=== PATIENT | female | born 1985 | race Two or more races ===

== ENCOUNTER 2016-06-03 14:23 | Emergency (ER) | payer OTHER ==
[2016-06-03 14:33] VITALS: BP 145/76; PULSE 54; TEMP 97.7; BMI 36.1
[2016-06-03] MEDS ORDERED: LIDOCAINE 2.5%/PRILOCAINE 2.5% (5 Gram/TUBE) TP ONE (16:28)
--- NOTE | 2016-06-03 16:36 | PDOC ---
[id number] [id number] PAIN Time Seen by Provider: 06/03/16 16:07 History Source: Patient Exam Limitations: No Limitations - History of Present Illness Initial Comments: 06/03/16 17:23 Chief complaint: Hemorrhoidal pain History of present illness: Patient is a 30-year-old female with no significant medical history except for external hemorrhoids after giving December 2015. Patient reports that she has had no difficulty with hemorrhoidal pain until 3 days ago that worsened yesterday when she carried suit[place] and the airport. Patient denies any constipated stool reports having last bowel movement yesterday with minimal rectal bleeding. She reports that she was able to push him right back back in until yesterday. Patient reports that hemorrhoid became much more painful and is currently a 9 out of 10. Patient has tried using witch diana and some other hemorrhoidal cream that she was given back in December 2015. Patient denies any abdominal pain. Denies Any chance of being and just finished her menstrual cycle within the last couple of days. Timing/Duration: getting worse (over 3 days ) Modifying Factors: improves with: other (nothing ) Associated Symptoms: reports: other (bleeding slight with BM yesterday, large tender hemmorhoid external ) Past History - Past Medical History Allergies/Adverse Reactions: Allergies Allergy/AdvReac Type Severity Reaction Status Date / Time No Known Allergies Allergy Verified 06/03/16 14:33 Home Medications: Ambulatory Orders Lidocaine/Prilocaine Cream [Emla] 1 each TP Q8H PRN #1 kit 06/03/16 Oxycodone HCl/Acetaminophen [Percocet 5-325 mg Tablet] 1 tab PO Q6H PRN #8 tablet MDD 4 06/03/16 - Surgical History Abdominal Surgery: Yes (rt FALLOPIAN TUBE REMOVED) - Reproductive History (#): 9 Para: 2 Ectopic : Yes (x2) Therapeutic (s) & number: Yes (X2) Spontaneous : 2 - Immunization History Td Vaccination: Yes Immunization Up to Date: Yes - Psycho/Social/Smoking Cessation Hx Anxiety: No Suicidal Ideation: No Smoking Status: No Smoking History: Never smoked Years of Tobacco Use: 0 Have you smoked in the past 12 months: No Number of Cigarettes Smoked Daily: 0 Cigars Per Day: 0 Information on smoking cessation initiated: No Hx Alcohol Use: No Drug/Substance Use Hx: No Substance Use Type: None Review of Systems - Review of Systems Able to Perform ROS?: Yes Constitutional: No: Symptoms Reported HEENTM: No: Symptoms Reported Respiratory: No: Symptoms reported Cardiac (ROS): No: Symptoms Reported ABD/GI: Yes: Rectal Bleeding (minimal with BM yesterday, external tender enlarge hemorrhoid for 3 days getting worse) : No: Symptoms Reported Musculoskeletal: No: Symptoms Reported Integumentary: No: Symptoms Reported Neurological: No: Symptoms reported *Physical Exam - Vital Signs Last Vital Signs Temp Pulse Resp BP Pulse Ox 97.7 F 54 L 18 145/76 98 06/03/16 14:31 06/03/16 14:31 06/03/16 14:31 06/03/16 14:31 06/03/16 14:31 - Physical Exam General Appearance: Yes: Appropriately Dressed Respiratory/Chest: positive: Lungs Clear, Normal Breath Sounds. negative: Chest Tender, Respiratory Distress Cardiovascular: positive: Regular Rhythm, Regular Rate, S1, S2 Gastrointestinal/Abdominal: positive: Normal Bowel Sounds, Soft. negative: Tender, Organomegaly, Distended, Guarding, Rebound, Tenderness, Hepatomegaly, Spleenomegaly Rectal Exam: positive: normal rectal tone, hemorrhoids (external tender enlarge hemorroid with bluish hue ), other (unable to do internal rectal exam ) Neurologic: positive: Alert, Normal Response, Responsive Procedures - Consent Consent obtained: From Patient - Incision and Drainage I&D Site: Bilateral: Other (external hemorroid with bluish hue ) Betadine cleansed: Yes Anesthesia: 1% Lidocaine Volume(ml): 3 Blade Size: 11 Attempts: 1 (hemostat inserted no clots obtained, minimal bleeding ) Medical Decision Making - Medical Decision Making 06/03/16 17:25 Patient is a 30-year-old female with no significant medical history except for external hemorrhoids after giving December 2015. Patient reports that she has had no difficulty with hemorrhoidal pain until 3 days ago that worsened yesterday when she [place] and the airport. Patient denies any constipated stool reports having last bowel movement yesterday with minimal rectal bleeding. She reports that she was able to push him right back back in until yesterday. Patient reports that hemorrhoid became much more painful and is currently a 9 out of 10. Patient has tried using witch diana and some other hemorrhoidal cream that she was given back in December 2015. Patient denies any abdominal pain. Denies Any chance of being and just finished her menstrual cycle within the last couple of days. external hemorroid extremely tender with bluish hue PLAN: ice to external hemorrhoid alondra to external hemorrhoid every 8 hrs as needed for pain excision of external hemorrhoid lidocaine 1 % 2.5 ml injected into hemorrhoid using a scalpel 11 blade eliptical incision made over area of hemorrhoid with bluish hue hemostat inserted no clots were obtained, minimal bleeding Patient to increase fiber to 30 g daily and to drink at least 64 ounces of water daily Patient may take sitz bath every few hours for comfort Patient advised not to do any lifting Patient to follow up with Dr. Merlos on 06/05/16 percocet 5mg/325 mg po now than every 6 hrs for severe pain # 8 tabs 06/03/16 19:23 *DC/Admit/Observation/Transfer Diagnosis at time of Disposition: External hemorrhoids without complication - Discharge Dispostion Disposition: HOME Condition at time of disposition: Stable - Prescriptions Prescriptions: Lidocaine/Prilocaine Cream [Emla] 1 each TP Q8H PRN #1 kit PRN Reason: Pain Oxycodone HCl/Acetaminophen [Percocet 5-325 mg Tablet] 1 tab PO Q6H PRN #8 tablet MDD 4 PRN Reason: Severe Pain - Referrals Referrals: Lori Medellin [Primary Care Provider] - Vicente Garcia MD [Staff Physician] - - Patient Instructions Additional Instructions: increase fiber intake to 30 g of fiber daily may eat 3 fiber one bar's daily which will equal 30 g of fiber Drink at least 64 ounces of water daily TAke warm baths as tolerated to help relieve pain and swelling Follow up with surgeon on 06/05/2016 Return to emergency room if symptoms worsen or new symptoms develop Avoid any heavy lifting of items Patient voiced understanding of discharge instructions and all questions were answered - Post Discharge Activity Work/School Note: Back to Work
[2016-06-03] MEDS ORDERED: OXYCODONE/APAP 5/325MG COMBO TABLET PO ONE (17:22)
[2016-06-03] MEDS ORDERED: OXYCODONE/APAP 5/325MG COMBO TABLET ONE (17:38)
== END 2016-06-03 17:41 | disposition home or self-care (01) ==
LOC: JERFT 14:23
DX: K64.4 Residual hemorrhoidal skin tags (principal)
CPT/HCPCS: 99281-25

== ENCOUNTER 2016-06-06 14:22 | Emergency (ER) | payer OTHER ==
[2016-06-06 14:27] VITALS: BP 104/55; PULSE 68; TEMP 98.4; BMI 35.9
--- NOTE | 2016-06-06 14:55 | PDOC ---
History of Present Illness - General History Source: Patient, Old Records Exam Limitations: No Limitations - History of Present Illness Initial Comments: 06/06/16 15:48 The patient is a 30 year old female, with a significant past medical history of hemorrhoids, who presents to the emergency department for hemorrhoids pain. The patient was seen in the ED 3 days ago for hemorrhoids and had it incised and drained. The patient is set to see Dr. Vicente Garcia regarding the incision while she is in the ED. The patient denies fever, chills, nausea, vomit, diarrhea and constipation. Denies dysuria, frequency, urgency and hematuria. Allergies: None Past surgical history: Right fallopian tube removal Social history: Occasional alcohol use. No tobacco or drug use reported Surgeon: Dr. Vicente Garcia <Jorge Espinosa - Last Filed: 06/06/16 16:24> <Rosy Muñiz - Last Filed: 06/09/16 09:48> - General Chief Complaint: Hemorrhoids Stated Complaint: SENT BY PCP Time Seen by Provider: 06/06/16 14:41 Past History <Jorge Espinosa - Last Filed: 06/06/16 16:24> - Past Medical History Other medical history: HEMMORHOIDS - Surgical History Abdominal Surgery: Yes (rt FALLOPIAN TUBE REMOVED) - Reproductive History (#): 9 Para: 2 Ectopic : Yes (x2) Therapeutic (s) & number: Yes (X2) Spontaneous : 2 - Immunization History Td Vaccination: Yes Immunization Up to Date: Yes - Psycho/Social/Smoking Cessation Hx Anxiety: No Suicidal Ideation: No Smoking Status: No Smoking History: Never smoked Years of Tobacco Use: 0 Have you smoked in the past 12 months: No Number of Cigarettes Smoked Daily: 0 Cigars Per Day: 0 Hx Alcohol Use: Yes (OCCASIONALLY) Drug/Substance Use Hx: No Substance Use Type: None <Rosy Muñiz - Last Filed: 06/09/16 09:48> - Past Medical History Allergies/Adverse Reactions: Allergies Allergy/AdvReac Type Severity Reaction Status Date / Time No Known Allergies Allergy Verified 06/06/16 14:28 Home Medications: Ambulatory Orders Lidocaine 5% Top. Ointment [Xylocaine 5% Top. Ointment -] 1 applic TP Q4H PRN # 1 tube 06/06/16 Review of Systems - Review of Systems Able to Perform ROS?: Yes Comments:: 06/06/16 15:49 GENERAL/CONSTITUTIONAL: No fever or chills. No weakness. HEAD, EYES, EARS, NOSE AND THROAT: No change in vision. No ear pain or discharge. No sore throat. CARDIOVASCULAR: No chest pain or shortness of breath RESPIRATORY: No cough, wheezing, or hemoptysis. GASTROINTESTINAL: No nausea, vomiting, diarrhea or constipation. GENITOURINARY: No dysuria, frequency, or change in urination. MUSCULOSKELETAL: No joint or muscle swelling or pain. No neck or back pain. SKIN: +External Hemorrhoids. No rash NEUROLOGIC: No headache, vertigo, loss of consciousness, or change in strength/ sensation. ENDOCRINE: No increased thirst. No abnormal weight change HEMATOLOGIC/LYMPHATIC: No anemia, easy bleeding, or history of blood clots. ALLERGIC/IMMUNOLOGIC: No hives or skin allergy. <Jorge Espinosa - Last Filed: 06/06/16 16:24> *Physical Exam - Vital Signs Last Vital Signs Temp Pulse Resp BP Pulse Ox 98.4 F 68 16 104/55 99 06/06/16 14:25 06/06/16 14:25 06/06/16 14:25 06/06/16 14:25 06/06/16 14:25 - Physical Exam Comments: 06/06/16 16:30 GENERAL: Awake, alert, and fully oriented, in no acute distress HEAD: No signs of trauma, normocephalic, atraumatic EYES: PERRLA, EOMI, sclera anicteric, conjunctiva clear ENT: Auricles normal inspection, hearing grossly normal, nares patent, oropharynx clear without exudates. Moist mucosa NECK: Normal ROM, supple, no lymphadenopathy, JVD, or masses LUNGS: No distress, speaks full sentences, clear to auscultation bilaterally HEART: Regular rate and rhythm, normal S1 and S2, no murmurs, rubs or gallops, peripheral pulses normal and equal bilaterally. ABDOMEN: Soft, nontender, normoactive bowel sounds. No guarding, no rebound. No masses EXTREMITIES: Normal inspection, Normal range of motion, no edema. No clubbing or cyanosis. NEUROLOGICAL: Cranial nerves II through XII grossly intact. Normal speech, normal gait, no focal sensorimotor deficits SKIN: Warm, Dry, normal turgor, no rashes or lesions noted. <Jorge Espinosa - Last Filed: 06/06/16 16:24> - Vital Signs Last Vital Signs Temp Pulse Resp BP Pulse Ox 98.4 F 68 16 104/55 99 06/06/16 14:25 06/06/16 14:25 06/06/16 14:25 06/06/16 14:25 06/06/16 14:25 <Rosy Muñiz - Last Filed: 06/09/16 09:48> Medical Decision Making - Medical Decision Making Pt evaluated by Dr. Garcia in ED. No further intervention at this time. Will treat with topical lidocaine ointment. <Rosy Muñiz - Last Filed: 06/09/16 09:48> *DC/Admit/Observation/Transfer - Attestations Scribe Attestion: 06/06/16 15:49 Documentation prepared by Jorge Espinosa, acting as chief medical officer for Rosy Muñiz MD <Jorge Espinosa - Last Filed: 06/06/16 16:24> - Discharge Dispostion Admit: No <Rosy Muñiz - Last Filed: 06/09/16 09:48> Diagnosis at time of Disposition: External hemorrhoids without complication - Discharge Dispostion Disposition: HOME Condition at time of disposition: Stable - Prescriptions Prescriptions: Lidocaine 5% Top. Ointment [Xylocaine 5% Top. Ointment -] 1 applic TP Q4H PRN # 1 tube PRN Reason: Pain - Referrals Referrals: Lori Medellin [Primary Care Provider] - - Patient Instructions Printed Discharge Instructions: DI for Hemorrhoids - Post Discharge Activity Work/School Note: Back to Work
--- NOTE | 2016-06-06 15:04 | CONSULT ---
Consult Consult Specialty:: colorectal surgery Reason for Consultation:: anorectal pain - History of Present Illness Chief Complaint: anorectal pain History of Present Illness: pt s/p drainage thrombosed hemorrhoid 3 days ago in ER. slight improvement in symptoms but still having pain, burning, swelling. had hemorrhoid issues around time of her child in december. denies constipation/straining. + recent travel/flight - History Source History Provided By: Patient Limitations to Obtaining History: No Limitations - Past Medical History ...LMP: 04/02/15 - Alcohol/Substance Use Hx Alcohol Use: Yes (OCCASIONALLY) - Smoking History Smoking history: Never smoked Have you smoked in the past 12 months: No Aproximately how many cigarettes per day: 0 Home Medications - Allergies Allergies/Adverse Reactions: Allergies Allergy/AdvReac Type Severity Reaction Status Date / Time No Known Allergies Allergy Verified 06/06/16 14:28 - Home Medications Home Medications: Ambulatory Orders Lidocaine/Prilocaine Cream [Emla] 1 each TP Q8H PRN #1 kit 06/03/16 Oxycodone HCl/Acetaminophen [Percocet 5-325 mg Tablet] 1 tab PO Q6H PRN #8 tablet MDD 4 06/03/16 Family Disease History - Family Disease History Family History: Denies Review of Systems - Review of Systems Constitutional: denies: Chills, Fever Eyes: denies: Blind Spots, Blurred Vision HENT: denies: Difficult Swallowing, Ear Discharge Neck: denies: Decreased ROM, Lumps Cardiovascular: denies: Chest Pain, Edema Respiratory: denies: Cough, Exercise Intolerance Gastrointestinal: denies: Abdominal Pain, Constipation Genitourinary: denies: Discharge, Dysuria Breasts: denies: Pain, Skin Changes Musculoskeletal: denies: Back Pain, Crepitus Integumentary: denies: Blister, Bruising Neurological: denies: Change in Speech, Confusion Endocrine: denies: Excessive Sweating, Flushing Hematology/Lymphatic: denies: Easily Bruised, Excessive Bleeding Psychiatric: denies: Altered Sleep Pattern, Anxiety Physical Exam Vital Signs: Vital Signs Temperature 98.4 F 06/06/16 14:25 Pulse Rate 68 06/06/16 14:25 Respiratory Rate 16 06/06/16 14:25 Blood Pressure 104/55 06/06/16 14:25 O2 Sat by Pulse Oximetry (%) 99 06/06/16 14:25 Constitutional: Yes: No Distress, Calm Eyes: Yes: Conjunctiva Clear, EOM Intact HENT: Yes: Atraumatic, Normocephalic Neck: Yes: Supple, Trachea Midline Cardiovascular: Yes: Regular Rate and Rhythm Respiratory: Yes: Regular, CTA Bilaterally Gastrointestinal: Yes: Soft. No: Distention, Tenderness ...Rectal Exam: Yes: Other (pt in left lateral decubitus position. +swollen tag in R posterior, incision healed. tender to palpation.) Renal/: No: CVA Tenderness - Left, CVA Tenderness - Right Musculoskeletal: No: Joint Stiffness, Joint Swelling Extremities: No: Calf Tenderness, Erythema Integumentary: No: Erythema, Rash Neurological: Yes: Alert, Oriented Psychiatric: Yes: Alert, Oriented Problem List - Problems (1) External hemorrhoids without complication Assessment/Plan: counseled pt about condition likely from altered bowel habits from travel high fiber diet increase water intake lidocaine 5% ointment q4 hrs prn pain f/u prn Code(s): K64.4 - RESIDUAL HEMORRHOIDAL SKIN TAGS
== END 2016-06-06 16:25 | disposition home or self-care (01) ==
LOC: JER 14:22
DX: K64.4 Residual hemorrhoidal skin tags (principal)
CPT/HCPCS: 99283-25

== ENCOUNTER 2016-09-26 18:06 | Emergency (ER) | payer OTHER ==
[2016-09-26 18:16] VITALS: BMI 35.2
[2016-09-26] MEDS ORDERED: SODIUM CHLORIDE 1,000 ML IV STA (20:28)
[2016-09-26] MEDS ORDERED: ONDANSETRON 4 MG/2 ML VIAL IVPB ONE (20:28)
[2016-09-26] MEDS ORDERED: METOCLOPRAMIDE HCL INJECTION 10 MG/2 ML VIAL IVPB ONE (20:29)
[2016-09-26] MEDS ORDERED: KETOROLAC TROMETHAMINE 30 MG/1 ML VIAL IVPUSH ONE (20:31)
[2016-09-26] MEDS ORDERED: METOCLOPRAMIDE HCL INJECTION 10 MG/2 ML VIAL ONE (20:58)
[2016-09-26] MEDS ORDERED: KETOROLAC TROMETHAMINE 30 MG/1 ML VIAL ONE (20:58)
[2016-09-26] MEDS ORDERED: ONDANSETRON 4 MG/2 ML VIAL ONE (20:59)
[2016-09-26 21:13] LABS: BASOPHIL 0.2 % (0-2.0); EOSINOPHIL 0.2 % (0-4.5); MCH 25.7 pg (25.7-33.7); MCHC 32.9 g/dl (32.0-36.0); MEAN CELL VOLUME 77.9 fl (80-96); MEAN PLT VOLUME 9.1 fl (7.5-11.1); NEUTROPHILS 68.2 % (42.8-82.8); PLATELET COUNT 197 K/MM3 (134-434); WHITE BLOOD COUNT 7.9 K/mm3 (4.0-10.0)
[2016-09-26 21:30] LABS: URINE APPEARANCE CLEAR; URINE BILIRUBIN NEGATIVE (NEGATIVE); URINE BLOOD NEGATIVE (NEGATIVE); URINE COLOR YELLOW; URINE GLUCOSE (UA) NEGATIVE (NEGATIVE); URINE KETONE 1+ (NEGATIVE); URINE LEUK ESTERASE NEGATIVE (NEGATIVE); URINE NITRITE NEGATIVE (NEGATIVE); URINE PROTEIN NEGATIVE (NEGATIVE); URINE UROBILINOGEN NEGATIVE mg/dL (0.2-1.0)
--- NOTE | 2016-09-26 21:36 | PDOC ---
History of Present Illness - General History Source: Patient Exam Limitations: No Limitations - History of Present Illness Initial Comments: 09/26/16 21:46 The patient is a 30 year old female with no significant past medical history who presents to the ED with multiple complaints. She states that her eyes began to get itchy after she rubbed them at work four days ago. The following day she developed a fever of 103 along with worsening, now red, burning, itchy eyes with exudate. She was also experiencing nausea, vomiting, and noting episodes of hematemesis as well. She went to her PMD and was prescribed motrin and antibiotic eye drops. After having fever for the next two nights she returned to her PMD again and was prescribed a Z pack. She states her two daughters are sick at home with viruses. The patient denies any chest pain, SOB, or urinary symptoms. LMP was September 11. Surgeries: 2010 right ectopic , Breast reduction in 2005 PCP: Michael Medellin <Allyssa Wang - Last Filed: 09/26/16 21:52> <Maria T Bartlett - Last Filed: 09/27/16 02:27> - General Chief Complaint: Nausea/Vomiting Stated Complaint: Eye Problem/FEVER Time Seen by Provider: 09/26/16 19:53 Past History <Allyssa Wang - Last Filed: 09/26/16 21:52> - Surgical History Abdominal Surgery: Yes (rt FALLOPIAN TUBE REMOVED) - Reproductive History (#): 9 Para: 2 Ectopic : Yes (x2) Therapeutic (s) & number: Yes (X2) Spontaneous : 2 - Immunization History Td Vaccination: Yes Immunization Up to Date: Yes - Psycho/Social/Smoking Cessation Hx Anxiety: No Suicidal Ideation: No Smoking Status: No Smoking History: Never smoked Years of Tobacco Use: 0 Have you smoked in the past 12 months: No Number of Cigarettes Smoked Daily: 0 Cigars Per Day: 0 Hx Alcohol Use: Yes (OCCASIONALLY) Drug/Substance Use Hx: No Substance Use Type: None <Maria T Bartlett - Last Filed: 09/27/16 02:27> - Past Medical History Allergies/Adverse Reactions: Allergies Allergy/AdvReac Type Severity Reaction Status Date / Time No Known Allergies Allergy Verified 09/26/16 18:14 Home Medications: Ambulatory Orders Lidocaine 5% Top. Ointment [Xylocaine 5% Top. Ointment -] 1 applic TP Q4H PRN # 1 tube 06/06/16 Sulfacetamide Sodium [Bleph-10] 5 ml OP DAILY 09/26/16 Review of Systems - Review of Systems Able to Perform ROS?: Yes Comments:: 09/26/16 21:46 CONSTITUTIONAL: Present: fever, chills Absent: diaphoresis, generalized weakness, malaise, loss of appetite HEENT: Present: eye pain, eye itchiness, eye discharge Absent: rhinorrhea, nasal congestion, throat pain, throat swelling, difficulty swallowing, mouth swelling, ear pain,visual Changes CARDIOVASCULAR: Absent: chest pain, syncope, palpitations, irregular heart rate, lightheadedness , peripheral edema RESPIRATORY: Absent: cough, shortness of breath, dyspnea with exertion, orthopnea, wheezing, stridor, hemoptysis GASTROINTESTINAL: Present: nausea, vomiting, diarrhea Absent: abdominal pain, abdominal distension, constipation, melena, hematochezia GENITOURINARY: Absent: dysuria, frequency, urgency, hesitancy, hematuria, flank pain, genital pain MUSCULOSKELETAL: Absent: myalgia, arthralgia, joint swelling SKIN: Absent: rash, itching, pallor HEMATOLOGIC/IMMUNOLOGIC: Absent: easy bleeding, easy bruising, lymphadenopathy, frequent infections ENDOCRINE: Absent: unexplained weight gain, unexplained weight loss, heat intolerance, cold intolerance NEUROLOGIC: Present: headache Absent: focal weakness or paresthesias, dizziness, unsteady gait, seizure, mental status changes, bladder or bowel incontinence PSYCHIATRIC: Absent: anxiety, depression, suicidal or homicidal ideation, hallucinations. <Allyssa Wang - Last Filed: 09/26/16 21:52> *Physical Exam - Vital Signs Last Vital Signs Temp Pulse Resp BP Pulse Ox 98.8 F 90 18 125/71 98 09/26/16 18:14 09/26/16 18:14 09/26/16 18:14 09/26/16 18:14 09/26/16 18:14 - Physical Exam Comments: 09/26/16 21:50 GENERAL: Well developed, well nourished. Awake and alert. No acute distress. HEENT: Conjunctivitis, tonsillar hypertrophy, exudates in oropharynx. Normocephalic, atraumatic. PERRLA, EOMI. No conjunctival pallor. Sclera are non-icteric. Moist mucous membranes. NECK: Supple. Full ROM. No JVD. Carotid pulses 2+ and symmetric, without bruits. No thyromegaly. No lymphadenopathy. CARDIOVASCULAR: Regular rate and rhythm. No murmurs, rubs, or gallops. Distal pulses are 2+ and symmetric. PULMONARY: No evidence of respiratory distress. Lungs clear to auscultation bilaterally. No wheezing, rales or rhonchi. ABDOMINAL: Soft. Non-tender. Non-distended. No rebound or guarding. No organomegaly. Normoactive bowel sounds. MUSCULOSKELETAL Normal range of motion at all joints. No bony deformities or tenderness. No CVA tenderness. EXTREMITIES: No cyanosis. No clubbing. No edema. No calf tenderness. SKIN: No petichiae. Warm and dry. Normal capillary refill. No rashes. No jaundice. NEUROLOGICAL: Alert, awake, appropriate. Cranial nerves 2-12 intact. No deficits to light touch and temperature in face, upper extremities and lower extremities. No motor deficits in the in face, upper extremities and lower extremities. Normoreflexic in the upper and lower extremities. Normal speech. Toes are down-going bilaterally. Gait is normal without ataxia. PSYCHIATRIC: Cooperative. Good eye contact. Appropriate mood and affect. <Allyssa Wang - Last Filed: 09/26/16 21:52> - Vital Signs Last Vital Signs Temp Pulse Resp BP Pulse Ox 98.8 F 90 18 125/71 98 09/26/16 18:14 09/26/16 18:14 09/26/16 18:14 09/26/16 18:14 09/26/16 18:14 <Maria T Bartlett - Last Filed: 09/27/16 02:27> ED Treatment Course - LABORATORY CBC & Chemistry Diagram: 09/26/16 20:49 09/26/16 20:49 - ADDITIONAL ORDERS Additional order review: Laboratory Results 09/26/16 20:49 Urine Color Yellow Urine Appearance Clear Urine pH 6.0 Urine Protein Negative Urine Glucose (UA) Negative Urine Ketones 1+ H Urine Blood Negative Urine Nitrite Negative Urine Bilirubin Negative Urine Urobilinogen Negative Ur Leukocyte Esterase Negative 09/26/16 20:49 RBC 4.81 MCV 77.9 L MCHC 32.9 RDW 15.0 MPV 9.1 Neutrophils % 68.2 Lymphocytes % 18.2 D Monocytes % 13.2 H D Eosinophils % 0.2 D Basophils % 0.2 - Medications Given in the ED: ED Medications Discontinued Medications Generic Name Dose Route Start Last Admin Trade Name Mariela PRN Reason Stop Dose Admin Diphenhydramine HCl 25 mg 09/26/16 20:30 09/26/16 21:16 Benadryl Injection - IVPUSH 09/26/16 20:31 25 mg ONCE ONE Administration Sodium Chloride 1,000 mls @ 1,000 mls/hr 09/26/16 20:28 09/26/16 21:00 Normal Saline - IV 09/26/16 21:27 1,000 mls/hr ASDIR STA Administration Ketorolac Tromethamine 30 mg 09/26/16 20:31 09/26/16 21:16 Toradol Injection - IVPUSH 09/26/16 20:32 30 mg ONCE ONE Administration Metoclopramide HCl 10 mg 09/26/16 20:29 09/26/16 21:16 Reglan Injection - IVPB 09/26/16 20:30 10 mg ONCE ONE Administration Ondansetron HCl 4 mg 09/26/16 20:28 09/26/16 21:16 Zofran Injection IVPB 09/26/16 20:29 4 mg ONCE ONE Administration <Allyssa Wang - Last Filed: 09/26/16 21:52> - LABORATORY CBC & Chemistry Diagram: 09/26/16 20:49 09/26/16 20:49 - ADDITIONAL ORDERS Additional order review: Laboratory Results 09/26/16 20:49 Urine Color Yellow Urine Appearance Clear Urine pH 6.0 Urine Protein Negative Urine Glucose (UA) Negative Urine Ketones 1+ H Urine Blood Negative Urine Nitrite Negative Urine Bilirubin Negative Urine Urobilinogen Negative Ur Leukocyte Esterase Negative 09/26/16 20:49 RBC 4.81 MCV 77.9 L MCHC 32.9 RDW 15.0 MPV 9.1 Neutrophils % 68.2 Lymphocytes % 18.2 D Monocytes % 13.2 H D Eosinophils % 0.2 D Basophils % 0.2 - Medications Given in the ED: ED Medications Discontinued Medications Generic Name Dose Route Start Last Admin Trade Name Mariela PRN Reason Stop Dose Admin Diphenhydramine HCl 25 mg 09/26/16 20:30 09/26/16 21:16 Benadryl Injection - IVPUSH 09/26/16 20:31 25 mg ONCE ONE Administration Sodium Chloride 1,000 mls @ 1,000 mls/hr 09/26/16 20:28 09/26/16 21:00 Normal Saline - IV 09/26/16 21:27 1,000 mls/hr ASDIR STA Administration Ketorolac Tromethamine 30 mg 09/26/16 20:31 09/26/16 21:16 Toradol Injection - IVPUSH 09/26/16 20:32 30 mg ONCE ONE Administration Metoclopramide HCl 10 mg 09/26/16 20:29 09/26/16 21:16 Reglan Injection - IVPB 09/26/16 20:30 10 mg ONCE ONE Administration Ondansetron HCl 4 mg 09/26/16 20:28 09/26/16 21:16 Zofran Injection IVPB 09/26/16 20:29 4 mg ONCE ONE Administration <Maria T Bartlett - Last Filed: 09/27/16 02:27> Medical Decision Making - Medical Decision Making 09/27/16 02:25 30-year-old female who presents with complaints of conjunctivitis. Since Sunday , nausea, vomiting, body aches, headache , presents because she says that her eyes are still injected and she had some vomiting earlier today. She is seeing her primary care physician twice since Sunday with these complaints and is currently taking Zithromax. Vital signs are stable. She is not present was fever to the emergency department. Labs were done and CBC and chem breath. Chemistries were unremarkable. She is not . She had a benign abdominal exam. She did have some exudates on the back of his throat and a strep culture was sent, which was read as negative. -She has sick contacts as both her daughters have similar symptoms Patient was encouraged to finish the medications that had already been prescribed to her by her primary care physician 2 days ago Rash and viral syndrome <Maria T Bartlett - Last Filed: 09/27/16 02:27> *DC/Admit/Observation/Transfer - Attestations Scribe Attestion: 09/26/16 21:49 Documentation prepared by Allyssa Wang, acting as quality engineer medical device for Maria T Bartlett MD. <Allyssa Wang - Last Filed: 09/26/16 21:52> <Maria T Bartlett - Last Filed: 09/27/16 02:27> Diagnosis at time of Disposition: Body aches Acute conjunctivitis Qualifiers: Acute conjunctivitis type: unspecified Laterality: bilateral Qualified Code(s) : H10.33 - Unspecified acute conjunctivitis, bilateral Nausea & vomiting Qualifiers: Vomiting type: unspecified Vomiting Intractability: unspecified Qualified Code( s): R11.2 - Nausea with vomiting, unspecified - Discharge Dispostion Disposition: HOME Condition at time of disposition: Stable - Referrals Referrals: Lori Medellin [Primary Care Provider] - - Patient Instructions Printed Discharge Instructions: DI for Vomiting -- Adult, DI for Conjunctivitis , DI for Viral Pharyngitis Additional Instructions: please finish your antibiotics use your eye drops take tylenol or motrin for pain followup with your physician
[2016-09-26 21:55] LABS: ALBUMIN 3.5 g/dl (3.4-5.0); ANION GAP 8 (8-16); CALCIUM 9.1 mg/dL (8.5-10.1); CO2 27 mmol/L (21-32); CREATININE 0.6 mg/dL (0.55-1.02); GLUCOSE,RANDOM 84 mg/dL (74-106); SGOT/AST 12 U/L (15-37); SGPT/ALT 16 U/L (12-78)
[2016-09-26 21:57] LABS: ALK PHOS 64 U/L (45-117); BILIRUBIN,TOTAL 0.5 mg/dL (0.2-1.0); TOT PROT 7.3 g/dl (6.4-8.2)
[2016-09-26 22:47] VITALS: BP 110/62; PULSE 83; TEMP 99.2
[2016-09-26] MEDS ORDERED: TOBRAMYCIN 0.3% OPHTH SOLN 5 ML BOTTLE OU ONE (23:23)
[2016-09-26] MEDS ORDERED: TOBRAMYCIN 0.3% OPHTH SOLN 5 ML BOTTLE ONE (23:37)
== END 2016-09-26 23:49 | disposition home or self-care (01) ==
LOC: JER 18:06
PROC: 3E0333Z Introduction of Anti-inflammatory into Peripheral Vein, Percutaneous Approach (ICD-10-PCS; principal; 2016-09-26)
PROC: 3E033GC Introduction of Other Therapeutic Substance into Peripheral Vein, Percutaneous Approach (ICD-10-PCS; 2016-09-26)
PROC: 3E0337Z Introduction of Electrolytic and Water Balance Substance into Peripheral Vein, Percutaneous Approach (ICD-10-PCS; 2016-09-26)
DX: H10.33 Unspecified acute conjunctivitis, bilateral (principal); R11.2 Nausea with vomiting, unspecified; R52 Pain, unspecified
CPT/HCPCS: 36415; 80053; 81003; 83690; 85025; 87070; 87430; 96374; 96375; 99283-25

== ENCOUNTER 2020-07-16 10:50 | Emergency (ER) | payer OTHER ==
[2020-07-16 11:19] VITALS: TEMP 98.7; BMI 38.7
[2020-07-16] MEDS ORDERED: SODIUM CHLORIDE 1,000 ML IV STA (11:50)
[2020-07-16 13:16] LABS: PH,URINE 7.5 (5.0-8.0); URINE APPEARANCE CLEAR; URINE BILIRUBIN NEGATIVE (NEGATIVE); URINE COLOR YELLOW; URINE GLUCOSE (UA) NEGATIVE (NEGATIVE); URINE KETONE NEGATIVE (NEGATIVE); URINE LEUK ESTERASE NEGATIVE (NEGATIVE); URINE NITRITE NEGATIVE (NEGATIVE); URINE PROTEIN NEGATIVE (NEGATIVE); URINE UROBILINOGEN 0.2 mg/dL (0.2-1.0)
[2020-07-16 13:52] LABS: INR 1.04 (0.83-1.09); PROTHROMBIN TIME (PATIENT) 12.8 SEC (9.7-13.0)
[2020-07-16 13:54] LABS: ACTIVATED PTT 29.1 SECONDS (25.2-36.5)
[2020-07-16 13:58] LABS: BLOOD UREA NITROGEN 7.9 mg/dL (7-18)
[2020-07-16 13:59] LABS: ALBUMIN 3.5 g/dl (3.4-5.0); CALCIUM 9.4 mg/dL (8.5-10.1)
[2020-07-16 14:00] LABS: BASO % 0.3 % (0-2.0); EOS % 2.4 % (0-4.5); HEMATOCRIT 36.8 % (32.4-45.2); LYMPH % 28.6 % (8-40); MCH 25.1 pg (25.7-33.7); MCHC 32.8 g/dl (32.0-36.0); MEAN CELL VOLUME 76.7 fl (80-96); MEAN PLT VOLUME 9.2 fl (7.5-11.1); MONO % 8.1 % (3.8-10.2); NEUT % 60.6 % (42.8-82.8); PLATELET COUNT 273 K/MM3 (134-434); RDW 17.1 % (11.6-15.6); WHITE BLOOD COUNT 9.8 K/mm3 (4.0-10.0)
[2020-07-16 14:02] LABS: CREATININE 0.5 mg/dL (0.55-1.3)
[2020-07-16 14:04] LABS: BILIRUBIN,TOTAL 0.3 mg/dL (0.2-1); TOT PROT 7.6 g/dl (6.4-8.2)
[2020-07-16 15:35] VITALS: BP 126/84; PULSE 82
== END 2020-07-16 15:35 | disposition home or self-care (01) ==
LOC: JER 10:50
PROC: 3E0337Z Introduction of Electrolytic and Water Balance Substance into Peripheral Vein, Percutaneous Approach (ICD-10-PCS; principal; 2020-07-16)
DX: O26.899 Other specified pregnancy related conditions, unspecified trimester (principal); R10.9 Unspecified abdominal pain; K92.1 Melena; Z3A.08 8 weeks gestation of pregnancy
CPT/HCPCS: 36415; 76817-TC; 80053; 81003; 84702; 84703; 85025; 85610; 85730; 86850; 86900; 86901; 87086; 96360; 99284-25

== ENCOUNTER 2021-09-24 20:48 | Emergency (ER) | payer OTHER ==
[2021-09-24 20:59] VITALS: BP 128/86; PULSE 76; RESP 20; TEMP 98.3; BMI 37.7
[2021-09-24] MEDS ORDERED: SODIUM CHLORIDE 1,000 ML IV SCH (22:15)
[2021-09-24 23:10] LABS: BASO % 0.7 % (0-2.0); EOS % 1.5 % (0-4.5); HEMOGLOBIN 12.9 GM/dL (10.7-15.3); LYMPH % 33.5 % (8-40); MCH 24.4 pg (25.7-33.7); MCHC 32.4 g/dl (32.0-36.0); MEAN CELL VOLUME 75.4 fl (80-96); MEAN PLT VOLUME 8.5 fl (7.5-11.1); MONO % 7.5 % (3.8-10.2); NEUT % 56.8 % (42.8-82.8); PLATELET COUNT 266 10^3/uL (134-434); RDW 16.6 % (11.6-15.6); WHITE BLOOD COUNT 7.1 K/mm3 (4.0-10.0)
[2021-09-24 23:18] LABS: INR 1.21 (0.83-1.09)
[2021-09-24 23:20] LABS: ACTIVATED PTT 29.9 SECONDS (25.2-36.5)
[2021-09-24 23:30] LABS: CALCIUM 9.1 mg/dL (8.5-10.1)
[2021-09-24 23:32] LABS: BLOOD UREA NITROGEN 11.7 mg/dL (7-18)
[2021-09-24 23:33] LABS: MAGNESIUM 1.9 mg/dL (1.8-2.4)
[2021-09-24 23:34] LABS: CREATININE 0.9 mg/dL (0.55-1.3)
[2021-09-24] MEDS ORDERED: SODIUM CHLORIDE 0.9% 500 ML INFUS.BAG IV ONE (23:35)
[2021-09-24 23:36] LABS: PHOSPHOROUS 1.7 mg/dL (2.5-4.9); TOT PROT 6.9 g/dl (6.4-8.2)
[2021-09-24 23:37] LABS: BILIRUBIN,TOTAL 0.5 mg/dL (0.2-1)
== END 2021-09-25 01:19 | disposition home or self-care (01) ==
LOC: JER 20:48
DX: R20.2 Paresthesia of skin (principal); R07.9 Chest pain, unspecified
CPT/HCPCS: 0241U-QW; 36415; 70450-TC; 70496-TC; 70498-TC; 80053; 80061; 82550; 83036; 83735; 84100; 84443; 84484; 84702; 85025; 85610; 85730; 86850; 86900; 86901; 93005; 93010; 99285-25

== ENCOUNTER 2022-05-07 19:15 | Emergency (ER) | payer OTHER ==
[2022-05-07 19:23] VITALS: BP 122/83; PULSE 98; RESP 18; TEMP 98; BMI 34.2
[2022-05-07] MEDS ORDERED: DEXAMETHASONE SOD PHOSPHATE 10 MG/1 ML VIAL PO ONE (20:25)
[2022-05-07] MEDS ORDERED: IBUPROFEN 600 MG TABLET (FP) PO ONE ×2 (20:25→20:37)
[2022-05-07] MEDS ORDERED: DEXAMETHASONE SOD PHOSPHATE 10 MG/1 ML VIAL ONE (20:37)
[2022-05-07] MEDS ORDERED: PENICILLIN G BENZATHINE 1,200,000 UNIT/2 ML PFS IM ONE ×2 (20:48→20:50)
== END 2022-05-07 21:31 | disposition home or self-care (01) ==
LOC: JERFT 19:15
DX: K64.4 Residual hemorrhoidal skin tags (principal); J02.9 Acute pharyngitis, unspecified; Z20.822 Contact with and (suspected) exposure to COVID-19
CPT/HCPCS: 0241U-QW; 96372; 99284-25; J1100

== ENCOUNTER 2022-08-14 18:28 | Emergency (ER) | payer OTHER ==
[2022-08-14 18:38] VITALS: BP 133/78; PULSE 88; RESP 18; TEMP 99.1; BMI 33.2
[2022-08-14] MEDS ORDERED: KETOROLAC TROMETHAMINE 30 MG/1 ML VIAL IM ONE (19:45)
[2022-08-14] MEDS ORDERED: KETOROLAC TROMETHAMINE 30 MG/1 ML VIAL ONE (19:46)
[2022-08-14] MEDS ORDERED: DEXAMETHASONE LIQUID 0.5 MG/5 ML PO ONE (19:46)
[2022-08-14] MEDS ORDERED: DEXAMETHASONE SOD PHOSPHATE 10 MG/1 ML VIAL ONE (19:47)
== END 2022-08-14 21:28 | disposition short-term general hospital (02) ==
LOC: JER 18:28
PROC: 3E0233Z Introduction of Anti-inflammatory into Muscle, Percutaneous Approach (ICD-10-PCS; principal; 2022-08-14)
DX: R07.0 Pain in throat (principal); H92.02 Otalgia, left ear; J36 Peritonsillar abscess
CPT/HCPCS: 84703; 99285-25